=== PATIENT | female | born 1980 | race Caucasian/White ===

== ENCOUNTER 2017-08-04 13:05 | Emergency (ER) | payer MEDICAID ==
--- NOTE | 2017-08-04 13:42 | ED Physician Documentation ---
PD HPI UPPER EXT INJURY - Stated complaint Stated Complaint: LT INDEX FINGER LAC - Chief complaint Chief Complaint: Laceration - History obtained from History obtained from: Patient - History of Present Illness Location: Left, Finger (index) Type of injury: Laceration (washing dishes and cut herself with sharp knife. believes it has been over 10 years on tetanus.) Where injury occurred: Home Timing - onset: Today Timing - details: Abrupt onset Worsened by: Palpating Associated symptoms: No: Weakness, Numbness Contributing factors: No: Anticoagulated Similar symptoms before: Has not had sx before Recently seen: Not recently seen Review of Systems Skin: reports: Laceration (s) Neurologic: denies: Focal weakness, Numbness PD PAST MEDICAL HISTORY - Past Medical History Past Medical History: Yes Neuro: Migraines Musculoskeletal: Chronic back pain - Past Surgical History Past Surgical History: Yes /[employer]: Tubal ligation - Present Medications Home Medications: Ambulatory Orders Medication Instructions Recorded Confirmed Amitriptyline [Elavil] 50 mg PO DAILY 08/04/17 Methocarbamol 500 mg PO DAILY 08/04/17 Nadolol 40 mg PO DAILY 08/04/17 - Allergies Allergies/Adverse Reactions: Allergies Allergy/AdvReac Type Severity Reaction Status Date / Time No Known Drug Allergies Allergy Verified 08/04/17 13:19 - Social History Does the pt smoke?: No Smoking Status: Never smoker Does the pt drink ETOH?: Yes Does the pt have substance abuse?: No - Immunizations Immunizations are current?: No Immunizations: TDAP >10years/unknown PD ED PE NORMAL - Vitals Vital signs reviewed: Yes - General General: Alert and oriented X 3, Well developed/nourished - Derm Derm: Normal color, Warm and dry - Extremities Extremities: Other (left index finger tip, not at nailbed, with small curved lac without bleeding right now. No FB seen. Does not cross flexion crease. Normal sensation and movement to finger. Good color and cap refill. ) Results - Vitals Vitals: Oxygen O2 Source Room air PD MEDICAL DECISION MAKING - ED course Complexity details: considered differential, d/w patient Departure - Departure Disposition: 01 Home, Self Care Clinical Impression: Need for tetanus booster Finger laceration Qualifiers: Encounter type: initial encounter Finger: index finger Damage to nail status: without damage Foreign body presence: without foreign body Laterality: left Qualified Code(s): S61.211A - Laceration without foreign body of left index finger without damage to nail, initial encounter Condition: Stable Record reviewed to determine appropriate education?: Yes Instructions: ED Laceration Hand Follow-Up: Mariana Cooper MD [Primary Care Provider] - Comments: You did receive a tetanus booster today so are good for 10 years. Tylenol or ibuprofen if needed for pain. The laceration looks like it should heal up fine just being held in place with the glue and Steri-Strips. Allow those to fall off on their own after several days. Keep them clean and dry. Once they are off, continue treatment of the wound with cleansing daily or twice a day and applying ointment to the area. Recheck if signs of infection. Otherwise this should heal over the next week or so. Discharge Date/Time: 08/04/17 14:55
[2017-08-04] MEDS ORDERED: TETANUS/DIPHTHERIA/PERTUSSIS 0.5 ML SYRINGE IM ONE (14:01)
[2017-08-04] MEDS ORDERED: IBUPROFEN 600 MG TABLET PO STA (14:01)
[2017-08-04 14:54] VITALS: BP 128/80
== END 2017-08-04 14:55 | disposition home or self-care (01) ==
LOC: ED 13:05
DX: S61.211A Laceration without foreign body of left index finger without damage to nail, initial encounter (principal); W26.0XXA Contact with knife, initial encounter; Y93.G1 Activity, food preparation and clean up; Y92.000 Kitchen of unspecified non-institutional (private) residence as the place of occurrence of the external cause
CPT/HCPCS: 90471; 90715; 99282; 99283; A9270